=== PATIENT | male | born 1955 ===

== ENCOUNTER 2020-08-23 09:31 | Outpatient (REF) | payer OTHER, SELFPAY ==
[2020-08-29 11:11] LABS: Testosterone, Total 316 ng/dL (250-1100)
== END 2020-08-23 09:32 | disposition home or self-care (01) ==
LOC: HO.10HDL 09:31
PROVIDERS: Visit Provider Urology
DX: E29.1 Testicular hypofunction (principal)
CPT/HCPCS: 84403

== ENCOUNTER → 2020-11-26 08:55 | Outpatient (BNVA) | payer OTHER, SELFPAY | PROVIDERS: PCP Internal Medicine; Referring Provider Internal Medicine; Visit Provider Urology ==

== ENCOUNTER 2024-05-11 08:58 | Outpatient (AMB) | payer MEDICARE, SELFPAY ==
--- NOTE | 2024-05-11 09:05 | MHC.OFFVIS ---
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 Sneed. He has a past medical history of hypogonadism, ED, hyperlipidemia, and diabetes. He presents to the office today as a new patient for erectile dysfunction. In discussion with the patient today he reports previously following up with Dr. Ortega at which time he was on testosterone therapy that he felt was very helpful however stopped following up. He reports following up with his PCP and discussing erectile dysfunction at which time recommendations were made for urology referral for further assessment evaluation. In review of patient's chart it appears last testosterone 08/21 316. He also discusses previously taking p.r.n. Viagra as needed prior to sexual activity and felt this was helpful however he has since ran out of refills. Discussed at length potential causes of hypogonadism as well as erectile dysfunction. Discussed further treatment options at length. When asked he does report urinary frequency with episodes of nocturia however relates this to his increased fluid consumption in does not find this bothersome. He otherwise denies urinary urgency, incontinence, hematuria, dysuria, foul smelling urine, changes to urinary stream, flank pain, fever, and or chills. He is happy with his current voiding parameters. In office urinalysis results reviewed with the patient today. [facility] Medical History Hypogonadism male Erectile dysfunction Hypogonadism Review of Systems Const Reports no additional complaints Eyes Reports no additional complaints ENT Reports no additional complaints Card Reports as per HPI Resp Reports no additional complaints GI Reports no additional complaints Reports as per HPI Musc Reports no additional complaints Neuro Reports no additional complaints Psych Reports no additional complaints Endo Reports as per HPI Austyn/Lymph Reports no additional complaints Aller/Immun Reports no additional complaints Physical Exam Const General: cooperative, comfortable, no acute distress, well developed, alert and awake Nutritional Appearance: overweight Orientation/consciousness: patient oriented x3 Limitations: no limitations HEENT Head: Yes normal to inspection, Yes normocephalic and Yes atraumatic Ears: hearing grossly normal bilaterally Eyes General: appearance normal, both eyes and all related structures Neck Neck: Yes normal visual inspection and Yes trachea midline Chest Chest palpation & inspection: normal inspection of the chest Resp Effort & Inspection: normal respiratory effort and able to speak in complete sentences Cardio Rate: regular rate GI Inspection: Yes normal to inspection General: Yes no CVA tenderness Back/Spine/Pelvis Back: no CVA tenderness Skin General skin exam: no rashes or lesions noted Neuro General: patient oriented x3 Extrem General: Yes normal to inspection Psych Appearance: grossly normal and well kempt Mental Status: mental status grossly normal Speech and movement: Normal speech and movement present and Clear speech present Affect: normal affect Attitude: cooperative Thought process: Normal thought process present Thought content: Normal thought content present Insight: Fair insight present (Psych) Judgement: Fair judgement present (Psych) Results AMB Urinalysis, Automated UA Leukoctes 0 Ganesh/uL Last Edit by GO Ross on 05/11/24 09:12 UA Nitrite Negative Last Edit by GO Ross on 05/11/24 09:12 UA Urobilinogen 0.2 mg/dL Last Edit by GO Ross on 05/11/24 09:12 UA Protein 0 mg/dL Last Edit by GO Ross on 05/11/24 09:12 UA pH 6.0 Last Edit by GO Ross on 05/11/24 09:12 UA Blood 0 Sen/uL Last Edit by GO Ross on 05/11/24 09:12 UA Specific [place] 1.005 Last Edit by GO Ross on 05/11/24 09:12 UA Ketone Negative Last Edit by GO Ross on 05/11/24 09:12 UA Bilirubin 0 mg/dL Last Edit by GO Ross on 05/11/24 09:12 UA Glucose 0 mg/dL Last Edit by GO Ross on 05/11/24 09:12 Results Reviewed Results Reviewed: Laboratory Last Values Urine pH (Auto) 6.0 05/11/24 09:11 Specific [place] (Auto) 1.005 05/11/24 09:11 Urine Protein (Auto) 0 mg/dL 05/11/24 09:11 Glucose (UA)(Auto) 0 mg/dL 05/11/24 09:11 Urine Ketones (Auto) Negative 05/11/24 09:11 Urine Blood (Auto) 0 Sen/uL 05/11/24 09:11 Urine Nitrite (Auto) Negative 05/11/24 09:11 Urine Bilirubin (Auto) 0 mg/dL 05/11/24 09:11 Urine Urobilinogen (Auto) 0.2 mg/dL 05/11/24 09:11 Leukocyte Esterase (Auto) 0 Ganesh/uL 05/11/24 09:11 Assessment & Plan Assessment & Plan (1) Hypogonadism male: Code(s): E29.1 - Testicular hypofunction Category: Medical (2) Erectile dysfunction: Code(s): N52.9 - Male erectile dysfunction, unspecified Category: Medical Qualifiers: Erectile dysfunction type: unspecified Qualified Code(s): N52.9 - Male erectile dysfunction, unspecified (3) Urinary frequency: Code(s): R35.0 - Frequency of micturition Category: Medical (4) Nocturia: Code(s): R35.1 - Nocturia Category: Medical Plan In office urinalysis results reviewed with the patient today; as noted above. Discussed at length potential causes for hypogonadism and erectile dysfunction patient is experiencing. Discussed, stressed, and educated on the importance of managing diabetes for improvement in erectile dysfunction, hypogonadism, and overall health and well-being. Will obtain testosterone and PSA for further assessment evaluation. Patient does report urinary frequency and nocturia however does not find this bothersome in relates it to his increased consumption of fluids. Start Cialis 5 mg daily as discussed and prescribed. Discussed p.r.n. dosing with Cialis verses tadalafil. Follow-up in 1-3 months with labs to be completed prior or sooner with any issues, concerns, and or questions. Orders: Orders AMB Urinalysis Automated Today Z13.9 - Encounter for screening, unspecified Testosterone, Free/Total Today E29.1 - Testicular hypofunction, N52.9 - Male erectile dysfunction, unspecified Prostate Specific Antigen Today E29.1 - Testicular hypofunction, N52.9 - Male erectile dysfunction, unspecified, R35.0 - Frequency of micturition, R35.1 - Nocturia Medications: New tadalafil (Cialis) [id number] [facility] [id number] Member [id number] 5 mg PO DAILY 90 days 90 tabs 1RF Discontinued sildenafil (Viagra) administer 30 minutes to 4 hours before activity Discontinued Reason: Duplicate 100 mg PO DAILY 30 days PRN 30 tabs 6RF sexual activity Patient Instructions: The patient had an opportunity to ask questions regarding the treatment plan. All questions were answered. Physical exam, labs, and imaging were discussed and reviewed in detail. As well as risks, benefits, and discussion of treatment choices. No major barriers to understanding were identified. The patient expressed understanding and agreement with the above treatment plan. The patient was made aware they should contact our office by phone for worsening of their current condition, the appearance of new symptoms, or with any questions or concerns. Compliance is encouraged with any medications and follow up testing that is ordered. It is a privilege to be allowed the opportunity to participate in? your urological care.? Again, if you have any questions or concerns If you have any questions or concerns please do not hesitate to contact me. The office is [phone]. This note is constructed using voice recognition software. While every effort has been made to ensure accuracy audit lead errors may have been included. Yours sincerely, LEN Ordaz Coding Level of Care Code New Pt Level 4 (88516) Diagnoses Hypogonadism male E29.1 Erectile dysfunction, unspecified erectile dysfunction type N52.9 Erectile dysfunction type: unspecified Urinary frequency R35.0 Nocturia R35.1
== END 2024-05-11 09:46 | disposition home or self-care (01) ==
PROVIDERS: PCP Internal Medicine; Visit Provider Nurse Practitioner Family
DX: E29.1 Testicular hypofunction (principal); N52.9 Male erectile dysfunction, unspecified; R35.0 Frequency of micturition; R35.1 Nocturia; Z13.9 Encounter for screening, unspecified
CPT/HCPCS: 99204

== ENCOUNTER → 2024-05-11 08:58 | Outpatient (BNVA) | payer MEDICARE, SELFPAY | PROVIDERS: PCP Internal Medicine; Visit Provider Nurse Practitioner Family | DX: E29.1 Testicular hypofunction (principal); N52.9 Male erectile dysfunction, unspecified; R35.0 Frequency of micturition; R35.1 Nocturia | CPT/HCPCS: 81003; 99202 ==